=== PATIENT | male | born 1990 | race Caucasian/White ===

== ENCOUNTER 2020-03-05 15:33 | Emergency (ER) | payer OTHER ==
[2020-03-05 15:48] VITALS: BP 128/79; PULSE 88; BMI 32.1
[2020-03-05] MEDS ORDERED: KETOROLAC TROMETHAMINE 30 MG/1 ML VIAL IM ONE (16:37)
[2020-03-05] MEDS ORDERED: KETOROLAC TROMETHAMINE 30 MG/1 ML VIAL ONE (16:39)
== END 2020-03-05 17:50 | disposition home or self-care (01) ==
LOC: JERFT 15:33
PROC: 3E0233Z Introduction of Anti-inflammatory into Muscle, Percutaneous Approach (ICD-10-PCS; principal; 2020-03-05)
DX: Z04.1 Encounter for examination and observation following transport accident (principal)
CPT/HCPCS: 99284-25

== ENCOUNTER 2023-09-30 06:36 | Emergency (ER) | payer OTHER ==
[2023-09-30 07:02] VITALS: BP 127/88; PULSE 89; RESP 18; TEMP 97.7; BMI 34.2
[2023-09-30 08:24] LABS: THROAT:GRP A STREP NOT DETECTED (NOTDETECTED)
== END 2023-09-30 09:21 | disposition home or self-care (01) ==
LOC: JER 06:36
PROC: 3E0133Z Introduction of Anti-inflammatory into Subcutaneous Tissue, Percutaneous Approach (ICD-10-PCS; principal; 2023-09-30)
DX: G47.00 Insomnia, unspecified (principal); R05.9 Cough, unspecified; J02.9 Acute pharyngitis, unspecified; J00 Acute nasopharyngitis [common cold]; R09.81 Nasal congestion; Z20.822 Contact with and (suspected) exposure to COVID-19
CPT/HCPCS: 0241U-QW; 87651; 99284-25